=== PATIENT | female | born 1990 | race American Indian/Alaskan Native ===

== ENCOUNTER 2019-02-19 17:41 | Emergency (ER) | payer MEDICAID ==
[2019-02-19 17:58] VITALS: BMI 29.1
[2019-02-19 18:06] VITALS: RESP 18; TEMP 98.3
[2019-02-19] MEDS ORDERED: Sodium Chloride 0.9% 1,000 ML IV STA (18:11)
--- NOTE | 2019-02-19 18:12 | ED PDOC ---
Arrival/HPI - General Chief Complaint: Flu-like Symptoms Time Seen by Provider: 02/19/19 17:46 Historian: Patient - History of Present Illness Narrative History of Present Illness (Text): 29 y/o female with PMH of MS presents to the ED c/o flu-like symptoms x 4 days. Symptoms include chills, fever, congestion, headache, body aches, lower back pain, productive cough, and sore throat. Associated lower abdominal pain that she describes as sharp and constant. Pt was seen at [facility] for her symptoms 2 days ago and clinically diagnosed with the flu. Has been taking motrin, sudafed, and tylenol for her symptoms without relief. Denies nausea, vomiting, diarrhea, vaginal bleeding or odor, urinary symptoms, chest pain, SOB, palpitations, or any other associated symptoms. Past Medical History - Provider Review Nursing Documentation Reviewed: Yes - Neurological Hx Multiple Sclerosis: Yes - Psychiatric Hx Substance Use: No - Surgical History Hx Section: Yes (1) - Anesthesia Hx Anesthesia: Yes Family/Social History - Physician Review Nursing Documentation Reviewed: Yes Family/Social History: No Known Family HX Smoking Status: Never Smoked Hx Alcohol Use: No Hx Substance Use: No Allergies/Home Meds Allergies/Adverse Reactions: Allergies No Known Allergies Allergy (Verified 02/19/19 17:58) Review of Systems - Review of Systems Constitutional: Fevers Eyes: Normal. absent: Vision Changes, Photophobia ENT: Sore Throat, Sinus Congestion Respiratory: Cough. absent: SOB Cardiovascular: Normal. absent: Chest Pain, Palpitations Gastrointestinal: Abdominal Pain. absent: Stool Changes, Nausea, Vomiting, Appetite Changes Genitourinary Female: Normal. absent: Dysuria, Frequency, Vaginal Bleeding, Vaginal Discharge Musculoskeletal: Back Pain. absent: Neck Pain Skin: Normal. absent: Rash Neurological: Normal. absent: Headache, Dizziness Endocrine: Normal. absent: Diaphoresis Hemo/Lymphatic: Normal Psychiatric: Normal Physical Exam Vital Signs Reviewed: Yes Vital Signs Temp Pulse Resp Pulse Ox 02/19/19 17:58 98.3 F 83 18 99 Temperature: Afebrile Blood Pressure: Normal Pulse: Regular Respiratory Rate: Normal Appearance: Positive for: Well-Appearing, Non-Toxic, Comfortable Pain Distress: None Mental Status: Positive for: Alert and Oriented X 3 - Systems Exam Head: Present: Atraumatic, Normocephalic Pupils: Present: PERRL Extroacular Muscles: Present: EOMI Conjunctiva: Present: Normal Ears: Present: Normal, NORMAL TM, Normal Canal Mouth: Present: Moist Mucous Membranes Pharnyx: Present: ERYTHEMA (bilateral tonsils and soft palate). No: EXUDATE, TONSILS ENLARGED Nose (External): Present: Atraumatic Nose (Internal): Present: Normal Inspection Neck: Present: Normal Range of Motion. No: Meningeal Signs Respiratory/Chest: Present: Clear to Auscultation, Good Air Exchange. No: Respiratory Distress, Accessory Muscle Use Cardiovascular: Present: Regular Rate and Rhythm, Normal S1, S2, Peripheal Pulses Present Abdomen: Present: Tenderness (RLQ, Suprapubic, LLQ), Normal Bowel Sounds. No: Distention, Peritoneal Signs, Rebound, Guarding Back: Present: Normal Inspection. No: CVA Tenderness Upper Extremity: Present: Normal Inspection, Normal ROM, NORMAL PULSES, Neurovascularly Intact, Capillary Refill < 2s. No: Cyanosis, Edema, Temperature Abnormalties Lower Extremity: Present: Normal Inspection, NORMAL PULSES, Normal ROM, N eurovascularly Intact, Capillary Refill < 2 s. No: Edema, Temperature Abnormalties Neurological: Present: GCS=15, CN II-XII Intact, Speech Normal, Motor Func Grossly Intact, Normal Sensory Function, Gait Normal Skin: Present: Warm, Dry, Normal Color. No: Rashes Lymphatic: No: Cervical Adenopathy Psychiatric: Present: Alert, Oriented x 3, Normal Insight, Normal Concentration, Normal Affect, Normal Mood Medical Decision Making ED Course and Treatment: Initial Plan: * CBC, CMP * Coags * UA * Rapid strep * Rapid flu * CXR * CT Abd/Pelvis with IV contrast * IVF 02/19/19 21:33 Bloodwork reviewed, unremarkable. Rapid strep and flu negative Pt unwilling to wait for imaging. Asking to leave AMA. The patient is choosing to leave against medical advice. I have personally explained to the patient that choosing to do so may result in permanent bodily harm, disability, or . I have discussed at great length that without further evaluation and monitoring there may be unforeseen circumstances and/or deterioration causing permanent bodily harm or as a result of their choice. The patient is alert, oriented, and shows the mental capacity to make clear decisions regarding the patients health care at this time. The patient co ntinues to wish to leave against medical advice. In light of the patients decision to leave against medical advice, follow-up has been arranged and the patient is aware of the importance to following up as instructed. The patient has been advised that they should return to the emergency room immediately if they change their mind at any time, or if their condition begins to change or worsen in any way. - Lab Interpretations Lab Results: 02/19/19 19:38 02/19/19 19:38 Lab Results 02/19/19 19:50: Influenza Typ A,B (EIA) Negative for flu a/b, Grp A Beta Strep A g Negative 02/19/19 19:38: PT 11.9, INR 1.07, APTT 30.7 02/19/19 19:38: Sodium 141, Potassium 3.7, Chloride 107, Carbon Dioxide 29, Anion Gap 10, BUN 12, Creatinine 0.7, Est GFR ( Amer) > 60, Est GFR (Non- Af Amer) > 60, Random Glucose 95, Calcium 9.1, Total Bilirubin 0.2, AST 30, ALT 31, Alkaline Phosphatase 64, Total Protein 7.9, Albumin 3.9, Globulin 4.0, Albumin/Globulin Ratio 1.0 L, Lipase 156 02/19/19 19:38: WBC 5.9, RBC 4.02, Hgb 12.2, Hct 37.4, MCV 93.0, MCH 30.3, MCHC 32.6, RDW 13.7, Plt Count 247, MPV 9.5, Neut % (Auto) 53.2, Lymph % (Auto) 34.6, [place] % (Auto) 10.8 H, Eos % (Auto) 1.2 L, Baso % (Auto) 0.2, Lymph # (Auto) 2.1, [place] # (Auto) 0.6, Eos # (Auto) 0.1, Baso # (Auto) 0.01, Absolute Neuts (auto) 3.15 02/19/19 19:30: Urine Color Yellow, Urine Appearance Clear, Urine pH 6.0, Ur Specific [place] >= 1.030, Urine Protein Negative, Urine Glucose (UA) Negative, Urine Ketones Trace H, Urine Blood Negative, Urine Nitrate Negative, Urine Bilirubin Negative, Urine Urobilinogen 1.0 H, Ur Leukocyte Esterase Negative I have reviewed the lab results: Yes - RAD Interpretation Radiology Orders: 02/19/19 18:10 CXR (PA/LAT) [CHEST TWO VIEWS (PA/LAT)] [RAD] Stat Disposition/Present on Arrival - Present on Arrival Any Indicators Present on Arrival: No History of DVT/PE: No History of Uncontrolled Diabetes: No Urinary Catheter: No History of Decub. Ulcer: No History Surgical Site Infection Following: None - Disposition Have Diagnosis and Disposition been Completed?: No Diagnosis: Left against medical advice, Abdominal pain, Influenza-like illness Disposition: AGAINST MEDICAL ADVICE Disposition Time: 21:37 Condition: GUARDED Prescriptions: Acetaminophen [Children's Tylenol] 650 mg PO Q4H PRN #2 bottle PRN Reason: Fever >100.4 F Forms: [facility] ([facility])
[2019-02-19 20:01] LABS: URINE BILIRUBIN NEGATIVE (NEGATIVE); URINE BLOOD NEGATIVE (NEGATIVE); URINE GLUCOSE (UA) NEGATIVE (NEGATIVE); URINE LEUKOCYTE ESTERASE NEGATIVE Leu/uL (NEGATIVE); URINE PROTEIN NEGATIVE mg/dL (<30 mg/dL)
[2019-02-19 20:02] LABS: URINE APPEARANCE CLEAR (CLEAR); URINE COLOR YELLOW (YELLOW)
[2019-02-19 20:02] LABS: BASO # 0.01 K/mm3 (0.0-2.0); BASO % 0.2 % (0.0-3.0); EOS # 0.1 (0.0-0.7); EOS % 1.2 % (1.5-5.0); HEMOGLOBIN 12.2 g/dL (12.0-16.0); LYMPH # 2.1 (1.2-3.4); LYMPH % 34.6 % (22.0-35.0); MEAN CORPUSCULAR HEMOGLOBIN 30.3 pg (25.0-35.0); MEAN CORPUSCULAR HGB CONC 32.6 g/dl (31.0-37.0); MEAN PLATELET VOLUME 9.5 fl (7.0-11.0); MONO # 0.6 (0.1-0.6); MONO % 10.8 % (1.0-6.0); RBC 4.02 10^6/uL (3.5-6.1); RED CELL DISTRIBUTION WIDTH 13.7 % (11.5-14.5); WHITE BLOOD COUNT 5.9 10^3/uL (4.5-11.0)
[2019-02-19 20:05] LABS: INR 1.07; PARTIAL THROMBOPLASTIN TIME 30.7 Seconds (26.9-38.3); PROTHROMBIN TIME 11.9 SECONDS (9.4-12.5)
[2019-02-19 20:10] LABS: ALT/SGPT 31 U/L (7-56); AST/SGOT 30 U/L (14-36); BLOOD UREA NITROGEN 12 mg/dL (7-21); CALCIUM 9.1 mg/dL (8.4-10.5); GFR NON-AFRICAN AMERICAN > 60; LIPASE 156 U/L (23-300)
[2019-02-19 20:12] LABS: ALBUMIN 3.9 g/dL (3.0-4.8)
[2019-02-19 20:15] LABS: INFLUENZA A B NEGATIVE FOR FLU A/B (NEGATIVE)
[2019-02-19] MEDS ORDERED: Iohexol 350 MG/100 ML VIAL ONE (21:26)
[2019-02-19 23:44] VITALS: BP 128/73; PULSE 85; O2SAT 100
== END 2019-02-19 21:50 | disposition left against medical advice (07) ==
LOC: ED 17:41
DX: J11.1 Influenza due to unidentified influenza virus with other respiratory manifestations (principal); R10.9 Unspecified abdominal pain; G35 Multiple sclerosis
CPT/HCPCS: 80053; 81003; 81025; 83690; 85025; 85610; 85730; 87070; 87430; 87804; 96360; 99284; J7030; Q9967